=== PATIENT | female | born 1980 | race African-American/Black ===

== ENCOUNTER 2017-10-28 21:21 | Emergency (ER) | payer OTHER ==
[2017-10-28] MEDS ORDERED: ALBUTEROL SULFATE 0.083% NEB 2.5 MG/3 ML AMPUL NEB ONE (23:31)
[2017-10-28] MEDS ORDERED: PREDNISONE 20 MG TABLET PO ONE (23:31)
[2017-10-28] MEDS ORDERED: IPRATROPIUM/ALBUTEROL 0.5-2.5 MG/3 ML AMPUL NEB ONE (23:31)
--- NOTE | 2017-10-28 23:35 | ER Document Report ---
HPI - HPI Patient complains to provider of: Fever cough wheeze Onset: Other - Tuesday Onset/Duration: Gradual Pain Level: 4 Context: 36-year-old obese smoker female with congested cough, wheeze, fever, myalgias with gradual onset since Tuesday. Her son had influenza with a positive test. No chest pain or shortness of breath. No nausea vomiting or diarrhea. No abdominal pain. No flu shot. No history of asthma or COPD. Associated Symptoms: None Exacerbated by: Denies Relieved by: Denies - ROS ROS below otherwise negative: Yes Systems Reviewed and Negative: Yes All other systems reviewed and negative - REPRODUCTIVE LMP: na Past Medical History - General Information source: Patient - Social History Smoking Status: Current Every Day Smoker Frequency of alcohol use: None Drug Abuse: None Lives with: Family Family History: Reviewed & Not Pertinent Pulmonary Medical History: Reports: Hx Pneumonia Surgical Hx: Negative Vertical Provider Document - CONSTITUTIONAL Agree With Documented VS: Yes Exam Limitations: No Limitations - INFECTION CONTROL TRAVEL OUTSIDE OF THE [place] IN LAST 30 DAYS: No - HEENT HEENT: Normocephalic, PERRLA. negative: Conjuctival Injection, Tympanic Membrane Red, Tympanic Membrane Bulging - NECK Neck: Supple. negative: Lymphadenopathy-Left, Lymphadenopathy-Right - RESPIRATORY Respiratory: Rhonchi - Scattered bilateral, Wheezing - Bilateral expiratory O2 Sat by Pulse Oximetry: 97 - CARDIOVASCULAR Cardiovascular: Regular Rate, Regular Rhythm - GI/ABDOMEN Gastrointestinal: Abdomen Soft, Abdomen Non-Tender - NEURO Level of Consciousness: Awake, Alert - DERM Integumentary: Warm, Dry, No Rash Course - Re-evaluation Re-evalutation: 10/28/17 00:30 Feels much better after nebs. no wheez or sob. some congested cough. CXR RLL pneumonia.Will tx with azithromycin, steroid, albuterol. - Vital Signs Vital signs: Temp Pulse Resp BP Pulse Ox 98.7 F 83 18 136/84 H 97 10/28/17 21:27 10/28/17 21:27 10/28/17 21:27 10/28/17 21:27 10/28/17 21:27 Discharge - Discharge Clinical Impression: Wheezing Right lower lobe pneumonia Qualifiers: Pneumonia type: due to unspecified organism Qualified Code(s): J18.1 - Lobar pneumonia, unspecified organism Condition: Good Disposition: HOME, SELF-CARE Instructions: Azithromycin ([facility]), Inhaled Bronchodilators ([facility]), Pneumonia ([facility] ), Stop Smoking ([facility]), Steroid Medication Additional Instructions: Plenty of fluids and rest Return to the emergency room for any chest pain or shortness of breath Azithromycin 500mg first dose given here in the emergency department 250 mg of azithromycin for the next 4 days use the inhaler 2 puffs every 3 hours prednisone for the next 4 days Prescriptions: Azithromycin [Zithromax] 250 mg PO DAILY #4 tablet Prednisone [Deltasone 20 mg Tablet] 40 mg PO DAILY #8 tablet Forms: Smoking Cessation Education, Return to Work
--- NOTE | 2017-10-28 23:53 | RADIOLOGY REPORT (SQ) ---
EXAM DESCRIPTION: CHEST PA/LAT COMPLETED DATE/TIME: 10/28/2017 11:44 pm REASON FOR STUDY: fever, cough COMPARISON: None. EXAM PARAMETERS: NUMBER OF VIEWS: two views TECHNIQUE: Digital Frontal and Lateral radiographic views of the chest acquired. RADIATION DOSE: NA LIMITATIONS: none FINDINGS: LUNGS AND PLEURA: Right lower lobe airspace disease. Lungs and pleural spaces otherwise c lear. MEDIASTINUM AND HILAR STRUCTURES: No masses or contour abnormalities. HEART AND VASCULAR STRUCTURES: Heart normal size. No evidence for failure. BONES: No acute findings. HARDWARE: None in the chest. OTHER: No other significant finding. IMPRESSION: RIGHT LOWER LOBE AIRSPACE DISEASE COMPATIBLE WITH PNEUMONIA. TECHNICAL DOCUMENTATION: JOB ID: [id number] [employer]- All Rights Reserved Reading location - IP/workstation name: [email or web address]
[2017-10-29] MEDS ORDERED: AZITHROMYCIN 250 MG TABLET PO ONE (00:14)
[2017-10-29] MEDS ORDERED: ALBUTEROL SULFATE HFA (90 MCG/PUFF) 8 GM MDI (1 MDI/ER DISP) IH PRN (00:14)
[2017-10-29 00:47] VITALS: BP 143/79
== END 2017-10-29 00:47 | disposition home or self-care (01) ==
LOC: ER 21:21
DX: J18.1 Lobar pneumonia, unspecified organism (principal); R06.2 Wheezing; R50.9 Fever, unspecified; R05 Cough; M79.1 Myalgia; F17.200 Nicotine dependence, unspecified, uncomplicated
CPT/HCPCS: 94640; 99285; 71046; J7512; J3490; J7620